=== PATIENT | female | born 1995 | race Hispanic/Latino ===

== ENCOUNTER 2018-06-01 19:34 | Day surgery (SDC) | payer BC, MEDICAID, OTHER ==
[2018-06-01 20:09] VITALS: BP 112/59; BMI 21.1
[2018-06-01 20:23] LABS: Bilirubin Negative (Negative); Blood, Urine Negative (Negative); Clarity CLEAR (Clear); Glucose, Urine (Dipstick) Negative (Negative); Leukocyte Negative (Negative); Nitrite Negative (Negative); Protein, Urine (Dipstick) Negative (Neg-Trace); Specific Gravity, Urine 1.015 (1.002-1.036); Urobilinogen 0.2 mg/dL (0.2-1.0)
[2018-06-01 20:25] LABS: Bacteria/HPF None Seen HPF (None Seen); Hyaline Casts/LPF 0-3 HYALINE CAST LPF (0-3 Hyaline); Pathc Cast-AUWi Flag 0.43 (0-2.49); RBC/HPF 0-3 HPF (0-3); Squamous Epithelial 0-3 HPF (0-3); WBC/HPF 0-3 HPF (0-3)
[2018-06-01 21:11] VITALS: TEMP 98.2
--- NOTE | 2018-06-01 21:13 | PRG ---
DATE OF SERVICE: 06/01/2018 PRESENTING COMPLAINT: Lower abdominal pain at 23 weeks gestation. HISTORY OF PRESENT ILLNESS: Patient is a 22-year-old 1, para 0 at 23 weeks for stated LUCY. OB record is not available on the unit. She reports 24 hours of midline lower abdominal pain that ra diates to side. She denies dysuria, vaginal bleeding, discharge, contractions. She reports occasion al movement. She is on a feeding movement for about a week. PAST MEDICAL HISTORY: None. PAST SURGICAL HISTORY: None. ALLERGIES: Denies. MEDICATIONS: vitamins. SOCIAL HISTORY: Denies tobacco, alcohol, or drug use. FAMILY HISTORY: Noncontributory. REVIEW OF SYSTEMS: Noncontributory. PHYSICAL EXAMINATION: GENERAL: female. VITAL SIGNS: 5 feet, 112 pounds, BMI 21, temperature 98.4, respirations 18, blood pressure 118/72. HEENT: Within normal limits. LUNGS: Clear to auscultation bilaterally. HEART: Regular rhythm. ABDOMEN: Soft, nontender, without rebound or guarding. She has mild discomfort to suprapubic palpat ion. No CVA tenderness. Vulva is without lesions. VAGINAL: Deferred. No vaginal discharge noted. EXTREMITIES: Without clubbing, cyanosis or edema. LABORATORY DATA: Fem cath UA is negative. IMPRESSION: Discomforts of , round ligament pain, no evidence of acute UTI or labor . heart rate tracing reveals FHTs 130s to 140s and no contractions. ABDOMEN: Soft on exam. PLAN: Discharge home, keep scheduled followup with Dr. Kwan.
== END 2018-06-01 21:03 | disposition home health service (06) ==
LOC: L&D/OP 19:34
PROVIDERS: ATTEND Family Medicine
DX: O99.89 Other specified diseases and conditions complicating pregnancy, childbirth and the puerperium (principal); R10.30 Lower abdominal pain, unspecified; Z3A.23 23 weeks gestation of pregnancy; Z79.899 Other long term (current) drug therapy
CPT/HCPCS: 51701; 81001; 99282; A4353

== ENCOUNTER 2018-09-29 19:53 | Day surgery (SDC) | payer OTHER ==
[2018-09-29 20:26] VITALS: BMI 26.4
--- NOTE | 2018-09-29 20:45 | PDOC.LDHP ---
Labor and Delivery H&P Chief complaint: other (Postcoital spottting at 39 weeks) HPI: Patient of Dr Kwan here for postcoital spotting but no VB nor LOF Good FM EGA 39W 3 days EDC 10/03/18 HPI: 23yo G1 at 39 weeks 3 days with recent sex this PM now with spotting. No CTX, no LOF, no MELVIN, no other issues. Review of Systems; Complete ROS and as per HPI Current gestational age (weeks): 39 (3 days) Due date: 10/03/18 Grav: 1 Para: 0 Current complications: none Abnormal US findings: No Current medications: none Previous surgical history: none Allergies/Adverse Reactions: Allergies Allergy/AdvReac Type Severity Reaction Status Date / Time No Known Allergies Allergy Verified 09/29/18 20:23 - Physical Exam Vital signs reviewed and normal: yes General: NAD Heart: RRR Lungs: CTAB Abdomen: gravid Extremeties: no edema FHT: category 1 - Assessment Postcoital Vag Spotting at full term, G1. - Plan Plan: observation in L&D (NST reactive; check cervix prior to discharge)
== END 2018-09-29 21:15 | disposition home or self-care (01) ==
LOC: L&D/OP 19:53
PROVIDERS: ATTEND Family Medicine
DX: O26.853 Spotting complicating pregnancy, third trimester (principal); Z3A.39 39 weeks gestation of pregnancy; Z87.891 Personal history of nicotine dependence
CPT/HCPCS: 99282

== ENCOUNTER 2018-10-01 01:34 | Day surgery (SDC) | payer OTHER ==
[2018-10-01 02:07] VITALS: BP 129/63; BMI 27.3
--- NOTE | 2018-10-01 03:23 | PDOC.LDHP ---
Labor and Delivery H&P Chief complaint: contractions HPI: 23 y/o G1 at 39w5d, patient of Dr. Kwan, presents with ctx. Was seen yesterday and 1 cm. Denies VB, LOF, or decreased FM. ROS neg for HEENT, CV, pulm, GI, , neuro, psych, skin, musculoskeletal, or constitutional symptoms other than mentioned above. OB History Details: First Current complications: none Past Medical History: None Current medications: pre-shireen vitamins Previous surgical history: none Allergies/Adverse Reactions: Allergies Allergy/AdvReac Type Severity Reaction Status Date / Time No Known Allergies Allergy Verified 10/01/18 02:03 Social history: none - Physical Exam Vital signs reviewed and normal: yes General: NAD, resting Lungs: nonlabored breathing Abdomen: gravid Extremeties: no edema FHT: category 1 (130s, mod variability, + accels, no decels) [place] contractions every: 8-10 mins - Vaginal Exam cm dilated: 1 Effacement: 75% Station: -2 - Assessment 23 y/o G1 at 39w5d with no e/o active labor. status reassuring with reactive NST. - Plan -: D/c home with precautions. Advised to keep appointment scheduled for tomorrow.
== END 2018-10-01 02:45 | disposition home or self-care (01) ==
LOC: L&D/OP 01:34
PROVIDERS: ATTEND Family Medicine
DX: O47.1 False labor at or after 37 completed weeks of gestation (principal); Z3A.39 39 weeks gestation of pregnancy
CPT/HCPCS: 99282

== ENCOUNTER 2018-10-01 23:25 | Day surgery (SDC) | payer OTHER ==
[2018-10-02 00:02] VITALS: BMI 27.3
[2018-10-02] MEDS ORDERED: Promethazine HCl 25 MG/ML VIAL IM SCH (00:30)
[2018-10-02] MEDS ORDERED: Morphine 10 MG/ML VIAL IM SCH (00:30)
--- NOTE | 2018-10-02 02:26 | PRG ---
DATE OF SERVICE: 10/02/2018 OB ER ENCOUNTER PRIMARY LINE SERVICE PERSON: Dr. Mayte Kwan. CHIEF COMPLAINT: Abdominal pain. HISTORY OF PRESENT ILLNESS: The patient is a 23-year-old G1, P0 female with an intrauterine at 39 weeks and 5 days, who is re-presenting with persistent uterine contractions. The patient was seen earlier this morning for the same complaint. The patient states that it has been getting harder and more frequent. The patient denies recent illness, fever, fall, headache, chest pain, or shortness of breath. She did vomit shortly after arrival. Denies diarrhea or constipation. Denies hip problems, knee problems, or muscle weakness. She does report vaginal discharge of bloody show. Denies urinary urgency or frequency. PAST MEDICAL HISTORY: Negative. PAST SURGICAL HISTORY: Negative. ALLERGIES: NO KNOWN DRUG ALLERGIES. MEDICATIONS: vitamins. SOCIAL HISTORY: Denies drug, alcohol, or tobacco use. OBSTETRIC LABORATORY DATA: OB labs, HIV is nonreactive. REVIEW OF SYSTEMS: Per HPI. PHYSICAL EXAMINATION: VITAL SIGNS: Blood pressure is 125/72, heart rate of 111, and respiratory rate of 20. GENERAL: She appears to be in some distress with her contractions. She is alert, oriented, cooperative, and pleasant to interact with. HEAD: Normocephalic and atraumatic. LUNGS: Clear to auscultation bilaterally. HEART: Regular rate and rhythm. ABDOMEN: Gravid and nontender, in between contractions. EXTREMITIES: Nontender, nonedematous. Her cervical exam is 1, 90, and -2 station, which is a change from about 2 o'clock this morning, where she was 1, 75, and -2 station. heart tracing performed noted to be at the baseline in the 130s with moderate long-term variability, positive 15 x 15 accelerations, no decelerations. Contractions show about every 6 minutes or so. ASSESSMENT AND PLAN: The patient is a 23-year-old G1, P0 female with an intrauterine at 39 weeks and 5 days, who is likely in latent labor and clearly uncomfortable. The patient's fetus has a category one tracing and reactive NST. The patient has accepted 8 of morphine IM and 12.5 of Phenergan IM and try to get her comfortable and we will recheck her in a couple of hours. Job ID: [id number]
== END 2018-10-02 02:15 | disposition home or self-care (01) ==
LOC: L&D/OP 23:25
PROVIDERS: ATTEND Family Medicine
DX: O47.1 False labor at or after 37 completed weeks of gestation (principal); Z3A.39 39 weeks gestation of pregnancy; Z79.899 Other long term (current) drug therapy
CPT/HCPCS: 99283; J2270; J2550

== ENCOUNTER 2018-10-02 14:46 | Inpatient (IN) | payer OTHER ==
[2018-10-02] MEDS ORDERED: Butorphanol Tartrate 1 MG/ML VIAL ONE (16:30)
[2018-10-02] MEDS ORDERED: Ondansetron PF 4 MG/2 ML Vial IVP PRN (16:48)
[2018-10-02] MEDS ORDERED: Butorphanol Tartrate 1 MG/ML VIAL SLOW IVP PRN (16:48)
[2018-10-02] MEDS ORDERED: Promethazine HCl 25 MG/ML VIAL IM PRN (16:48)
[2018-10-02] MEDS ORDERED: Acetaminophen 500 MG TAB PO PRN (16:48)
[2018-10-02] MEDS ORDERED: Lactated Ringer's 1,000 ML IV PRN (16:48)
[2018-10-02] MEDS ORDERED: Lactated Ringer's 1,000 ML IV SCH (16:48)
[2018-10-02 17:04] LABS: Mean Corpuscular HGB CONC 33.7 g/dL (32.0-36.0); Mean Corpuscular Hemoglobin 27.1 pg (27.0-31.0); Mean Corpuscular Volume 80.7 fL (78.0-98.0); Mean Platelet Volume 8.7 fL (7.4-10.4); Platelet Count 222 thou/uL (130-400); RBC Distribution Width 14.5 % (11.5-14.5); Red Blood Cell (RBC) Count 4.43 mill/uL (4.20-5.40); White Blood Cell (WBC) Count 12.8 thou/uL (4.8-10.8)
[2018-10-02 17:35] LABS: HBSAg Index 0.24 S/CO (0-0.99); HIV (1/2) Antibody/Antigen Non-Reactive (NonReactive); HIV 1/2 INDEX 0.08 S/CO (<1.00); Hep B Surf Ag Non-Reactive S/CO (NonReactive); Syphilis Antibody Nonreactive (Nonreactive); Syphilis Antibody Index 0.04 S/CO (<1.00 Non-Reactive)
[2018-10-02 19:07] VITALS: BMI 25.9
[2018-10-02] MEDS ORDERED: Lidocaine 1% (PF) 30 ML VIAL ONE (20:10)
[2018-10-02] MEDS ORDERED: NS / Oxytocin 40 units/1000ml 1,000 ML ONE (20:10)
[2018-10-03] MEDS ORDERED: HYDROcodone/Acetaminophen 5/325 mg Tablet PO PRN (00:34)
[2018-10-03] MEDS ORDERED: Benzocaine/Menthol 20-0.5% 60 ML CAN TOP PRN (00:34)
[2018-10-03] MEDS ORDERED: NS / Oxytocin 40 units/1000ml 1,000 ML IV SCH (00:34)
[2018-10-03] MEDS ORDERED: Milk Of Magnesia 30 ML UDCUP PO PRN (00:34)
[2018-10-03] MEDS ORDERED: Bisacodyl 10 MG SUPP PR PRN (00:34)
[2018-10-03] MEDS: Ibuprofen 800 MG TAB PO SCH ×4 (00:41→19:32)
--- NOTE | 2018-10-03 04:44 | DN ---
DATE OF PROCEDURE: 10/02/2018 DATE OF DELIVERY: 10/02/2018. PREOPERATIVE DIAGNOSIS: Term intrauterine . POSTOPERATIVE DIAGNOSIS: Term intrauterine as well as two small hymenal lacerations. PROCEDURES PERFORMED: Normal spontaneous vaginal delivery and laceration repair. ANESTHESIA: Local. QUANTITATIVE BLOOD LOSS: Pending at the time of this dictation. BRIEF DELIVERY SUMMARY: This is a 23-year-old G1, now P1, who presented in active labor. She progressed well to complete and pushing. She delivered a live female infant head away. There was no nuchal cord. Shoulders and body easily followed and the was placed on mother's abdomen. Apgars were 9 at 1 minute and 9 at 5 minutes. After delayed cord clamping, the cord was clamped and cut. Cord blood was collected and sent for analysis. Placenta delivered spontaneously and intact with a three-vessel umbilical cord. Uterine fundus was firm, following evacuation of the placenta. There were two small bleeding lacerations at the posterior hymen. These were repaired with simple interrupted suture using 3-0 Vicryl under local anesthesia with excellent hemostasis. Mom and baby were left with the nurse in excellent condition attempting to breastfeed. Job ID: [id number]
--- NOTE | 2018-10-03 07:43 | PDOC.PP ---
Post Progress Note Post Day #: 1 Subjective: No complaints. Pain controlled. Resting well. PO intake tolerated: yes Flatus: yes Ambulation: yes Vital Signs (12 hours) Temp Pulse Resp BP Pulse Ox 10/03/18 05:02 98.3 F 77 16 120/75 98 10/03/18 03:50 98.6 F 84 18 111/55 L 97 Weight Weight 137 lb - Physical Examination General: NAD Cardiovascular: no m/r/g, RRR Respiratory: clear to auscultation bilaterally, non-labored breathing Abdominal: + bowel sounds, lochia, no distention, appropriately TTP Result Diagrams: 10/02/18 15:10 Additional Labs: Post Labs Blood Type O POSITIVE 10/02/18 15:15 Hep Bs Antigen Non-Reactive S/CO (NonReactive) 10/02/18 15:10 (1) Vaginal delivery Code(s): O80 - ENCOUNTER FOR FULL-TERM UNCOMPLICATED DELIVERY Status: Acute - Assessment/Plan Routine care. Anticipate D/C tomorrow. Work on . Hospitalist will see this patient tomorrow.
[2018-10-03] MEDS: Docusate Calcium (SURFAK) 240 MG CAP PO SCH ×2 (07:57→21:36)
[2018-10-03] MEDS: Ferrous Sulfate 325 MG TAB PO SCH ×2 (07:58→16:27)
[2018-10-03] MEDS ORDERED: Adacel (T-DAP) 0.5 ML SYRINGE IM ONE (09:00)
[2018-10-03] MEDS ORDERED: Sodium Chloride 0.9% 10 ML ONE (11:37)
[2018-10-04] MEDS: Ibuprofen 800 MG TAB PO SCH (03:32)
[2018-10-04] MEDS: Ferrous Sulfate 325 MG TAB PO SCH (07:33)
[2018-10-04] MEDS: Docusate Calcium (SURFAK) 240 MG CAP PO SCH (07:33)
[2018-10-04 08:16] VITALS: BP 117/61; TEMP 97.9
== END 2018-10-04 14:33 | disposition home or self-care (01) | DRG 807 ==
LOC: L&D 14:46 → 3SE 10-03 04:02
PROVIDERS: ADMIT Family Medicine; ATTEND Family Medicine
PROC: 0UQKXZZ Repair Hymen, External Approach (ICD-10-PCS; principal; 2018-10-02)
PROC: 10E0XZZ Delivery of Products of Conception, External Approach (ICD-10-PCS; 2018-10-02)
PROC: 10907ZC Drainage of Amniotic Fluid, Therapeutic from Products of Conception, Via Natural or Artificial Opening (ICD-10-PCS; 2018-10-02)
DX: O70.0 First degree perineal laceration during delivery (principal); Z37.0 Single live birth; Z3A.39 39 weeks gestation of pregnancy
CPT/HCPCS: 85027; 86780; 86850; 86900; 86901; 87340; 87389; 90715; 96372; 99283; J0595; J2001; J2270; J2550

== ENCOUNTER 2023-06-10 18:57 | Emergency (ER) | payer BC, OTHER, SELFPAY ==
[2023-06-10] MEDS ORDERED: Acetaminophen 500 MG TAB ONE (20:47)
[2023-06-10] MEDS ORDERED: Ibuprofen 800 MG TAB ONE (20:47)
[2023-06-10 22:19] LABS: SARS-CoV-2 NAA Rapid Test DETECTED (NotDetected)
== END 2023-06-10 23:50 | disposition home or self-care (01) ==
LOC: ERS 18:57
DX: U07.1 COVID-19 (principal)
CPT/HCPCS: 71045; 87081; 87430